=== PATIENT | female | born 1995 | race American Indian/Alaskan Native ===

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

== ENCOUNTER 2017-01-18 12:19 | Emergency (ER) | payer MEDICAID ==
[2017-01-18 12:20] VITALS: BMI 24.1
[2017-01-18 12:57] VITALS: TEMP 99.1; O2SAT 99
[2017-01-18] MEDS ORDERED: cefTRIAXone (Rocephin) 250 mg Inj IM STA (13:08)
--- NOTE | 2017-01-18 13:08 | ED PDOC ---
Arrival/HPI - General Historian: Patient - General Chief Complaint: Female Genitourinary Time Seen by Provider: 01/18/17 13:03 - History of Present Illness Narrative History of Present Illness (Text): 01/18/17 13:04 21 y/o female, no significant, nkda, c/o need prophylatic treatment for gonorrhea and chlamydia. Pt. has exposed to her boyfriend which just got tested positive for chlamydia and told her to get treated as well. pt. stated that she feels fine, asymptomatic, no fever or chills, no night sweat, no diarrhea, no pelvic pain or urinary symptoms, no vaginal bleeding or discharge, no other medical or psychological complaints. (Juancarlos Grant) Past Medical History - Provider Review Nursing Documentation Reviewed: Yes - Past History Past History: No Previous - Infectious Disease Hx of Infectious Diseases: None - Psychiatric Hx Substance Use: No - Anesthesia Hx Anesthesia: No Family/Social History - Physician Review Nursing Documentation Reviewed: Yes Family/Social History: Unknown Family HX Smoking Status: Never Smoked Hx Alcohol Use: No Hx Substance Use: No Allergies/Home Meds Allergies/Adverse Reactions: Allergies No Known Allergies Allergy (Verified 04/02/16 10:15) Home Medications: Home Meds Medication Instructions Recorded Confirmed No Known Home Med 01/18/17 01/18/17 Review of Systems - Review of Systems Constitutional: absent: Fatigue, Fevers Eyes: absent: Vision Changes ENT: absent: Hearing Changes Respiratory: absent: SOB, Cough Cardiovascular: absent: Chest Pain Gastrointestinal: absent: Abdominal Pain, Diarrhea, Nausea, Vomiting Genitourinary Female: absent: Dysuria, Frequency, Hematuria, Urine Output Changes, Vaginal Bleeding, Vaginal Discharge Neurological: absent: Headache Physical Exam Vital Signs Reviewed: Yes Temperature: Afebrile Blood Pressure: Normal Pulse: Regular Respiratory Rate: Normal Appearance: Positive for: Well-Appearing, Non-Toxic, Comfortable Pain Distress: None Mental Status: Positive for: Alert and Oriented X 3 - Systems Exam Head: Present: Atraumatic, Normocephalic Pupils: Present: PERRL Extroacular Muscles: Present: EOMI Conjunctiva: Present: Normal Respiratory/Chest: Present: Clear to Auscultation, Good Air Exchange. No: Respiratory Distress, Accessory Muscle Use Cardiovascular: Present: Regular Rate and Rhythm, Normal S1, S2. No: Murmurs Abdomen: Present: Normal Bowel Sounds. No: Tenderness, Distention, Peritoneal Signs Back: No: CVA Tenderness Upper Extremity: Present: Normal Inspection. No: Cyanosis, Edema Lower Extremity: Present: Normal Inspection. No: Edema Neurological: Present: GCS=15, Speech Normal, Gait Normal, Memory Normal Skin: Present: Warm, Dry, Normal Color. No: Rashes Psychiatric: Present: Alert, Oriented x 3, Normal Insight, Normal Concentration Medical Decision Making ED Course and Treatment: 01/18/17 13:10 -Due to the patient's history of unprotected sex as per patient with this boyfriend infected with chlamydia, will treat with rocephin and azithromycin -Discharge home with education on use condom in the future, notify all your sexual partners to be prophylatic treated or get tested for gonorrhea/chlamydia , return to the ER for any new or worsening signs or symptoms. (Juancarlos Grant) 01/18/17 13:29 I was available for consultation during PA evaluation. The chart was reviewed by me, and I agree with disposition. The documented history was done by the physician enrollment eligibility representative. The documented physical exam was done by the physician enrollment eligibility representative. The documented procedures were done by the physician enrollment eligibility representative. (Jason Barton) - Medication Orders Current Medication Orders: Discontinued Medications Azithromycin (Zithromax) 1,000 mg PO STAT STA PRN Reason: Protocol Stop: 01/18/17 13:09 Ceftriaxone Sodium (Rocephin) 250 mg IM STAT STA PRN Reason: Protocol Stop: 01/18/17 13:09 - PA / EDGE SAWYER / Resident Statement MD/DO has reviewed & agrees with the documentation as recorded. Disposition/Present on Arrival - Present on Arrival Any Indicators Present on Arrival: No History of DVT/PE: No History of Uncontrolled Diabetes: No Urinary Catheter: No History of Decub. Ulcer: No History Surgical Site Infection Following: None - Disposition Have Diagnosis and Disposition been Completed?: Yes Disposition Time: 13:11 Patient Plan: Discharge - Disposition Diagnosis: Exposure to STD Disposition: HOME/ ROUTINE Condition: GOOD Additional Instructions: -Discharge home with education on use condom in the future, notify all your sexual partners to be prophylatic treated or get tested for gonorrhea/chlamydia , return to the ER for any new or worsening signs or symptoms. Ref[place] [facility] [place] [facility] [place] - Follow up with primary Forms: [facility] (Armenian), WORK NOTE
[2017-01-18 13:45] VITALS: BP 112/75; PULSE 64; RESP 17
== END 2017-01-18 13:44 | disposition home or self-care (01) ==
LOC: ED 12:19
DX: Z20.2 Contact with and (suspected) exposure to infections with a predominantly sexual mode of transmission (principal)
CPT/HCPCS: 96372; 99284; J0696